=== PATIENT | female | born 1990 | race Two or more races ===

== ENCOUNTER → 2021-01-02 | Emergency (ER) | payer MEDICAID, OTHER ==
[~2021-01-02] VITALS: Ht 157.5 cm; Wt 90.0 kg
[~2021-01-02] MED LIST: IBUP-1572 PO; IBUP200C5 PO; LEVA15HF4 IH; acetaminophen 325mg tablet PO ONE; ondansetron 4mg rapidly disintigrating tab PO STA
[2021-01-02 16:07] VITALS: BP 152/100
== END | disposition home or self-care (01) ==
LOC: ER 15:55
DX: R05 Cough (principal); R50.9 Fever, unspecified; Z79.899 Other long term (current) drug therapy
CPT/HCPCS: 99281